=== PATIENT | male | born 1970 | race Caucasian/White ===

== ENCOUNTER 2019-07-17 09:06 | Day surgery (SDC) | payer OTHER, BC ==
[2019-07-13 09:35] VITALS: BMI 27.1
[2019-07-17 09:29] VITALS: TEMP 96.8
[2019-07-17] MEDS ORDERED: LIDOCAINE 1% 20 ML VIAL (10MG/ML) FOR IV START INTRADERMA ONE (09:32)
[2019-07-17] MEDS ORDERED: LACTATED RINGERS 1,000 ML IV ONE (09:32)
[2019-07-17] MEDS ORDERED: PROPOFOL 10 MG/ML 20 ML VIAL IV ONE (10:58)
[2019-07-17] MEDS ORDERED: LIDOCAINE 1% INJ 10MG/ML (20 ML MDV) ONE (10:58)
--- NOTE | 2019-07-17 11:01 | P.GSHP ---
History of Present Illness H&P Date: 07/17/19 Chief Complaint: Screening colonoscopy This a 49-year-old male who presents today for screening colonoscopy. He denies a significant GI complaints. Past Medical History Past Medical History: Hypertension History of Any Multi-Drug Resistant Organisms: None Reported Past Surgical History: Back Surgery, Orthopedic Surgery Additional Past Surgical History / Comment(s): colonoscopy,Cervical fusion C5-T1-3 different surgeries,rt shoulder repair,vasyl carpel tunnel,trigger finger release Past Anesthesia/Blood Transfusion Reactions: Postoperative Nausea & Vomiting (PONV) Additional Past Anesthesia/Blood Transfusion Reaction / Comment(s): no hx blood transfusion Smoking Status: Never smoker - Past Family History Mother Family Medical History: No Reported History Medications and Allergies Home Medications Medication Instructions Recorded Confirmed Type Ascorbic Acid [Vitamin C] 500 mg PO DAILY 07/13/19 07/17/19 History Ergocalciferol [Vitamin D2] 50,000 unit PO OTERO 07/13/19 07/17/19 History Losartan/Hydrochlorothiazide 1 tab PO DAILY 07/13/19 07/17/19 History [Hyzaar 100-25 Tablet] Terazosin HCl [Hytrin] 10 mg PO BID 07/13/19 07/17/19 History Vitamin B Complex 1 each PO DAILY 07/13/19 07/17/19 History Allergies Allergy/AdvReac Type Severity Reaction Status Date / Time procaine [From Novocain] Allergy Itching & Verified 07/17/19 09:24 burning at site,states "lidocaine is ok" shellfish derived [Shellfish] Allergy Anaphylaxis Verified 07/17/19 09:24 Surgical - Exam Vital Signs Temp Pulse BP Pulse Ox 96.8 F L 75 165/91 98 07/17/19 09:25 07/17/19 09:25 07/17/19 09:25 07/17/19 09:25 - General well developed, well nourished, no distress - Eyes PERRL - ENT normal pinna - Neck no masses - Respiratory normal expansion - Cardiovascular Rhythm: regular - Abdomen Abdomen: soft, non tender Assessment and Plan Assessment: We'll perform screening colonoscopy
--- NOTE | 2019-07-17 11:10 | P.OP ---
Date of Procedure: 07/17/19 Preoperative Diagnosis: Screening colonoscopy Postoperative Diagnosis: Normal colonoscopy Procedure(s) Performed: Colonoscopy Anesthesia: MAC Surgeon: Yaw Sutton Pathology: none sent Condition: stable Disposition: PACU Description of Procedure: PROCEDURE: The patient was placed on the endoscopy table in the lateral position. Digital rectal examination was performed which revealed no abnormalities. The prostate was symmetrical without nodules. Flexible colonoscope was then placed in the patient's anus and passed throughout the entire colon. The ileocecal valve was visualized. The cecum, ascending, transverse, descending and sigmoid colon were normal. The rectum was normal as well. There were no masses, polyps or diverticula noted in the entire colon. SUMMARY OF FINDINGS: Normal colonoscopy.
[2019-07-17 11:33] VITALS: RESP 18
[2019-07-17 11:38] VITALS: BP 132/81; PULSE 62
--- NOTE | 2019-07-17 11:53 | P.OP ---
Date of Procedure: 07/17/19 Preoperative Diagnosis: Screening colonoscopy Postoperative Diagnosis: Normal colon Procedure(s) Performed: Colonoscopy Anesthesia: MAC Surgeon: Yaw Sutton Pathology: none sent Condition: stable Disposition: PACU Description of Procedure: PROCEDURE: The patient was placed on the endoscopy table in the lateral position. Digital rectal examination was performed which revealed no abnormalities. The prostate was symmetrical without nodules. Flexible colonoscope was then placed in the patient's anus and passed throughout the entire colon. The ileocecal valve was visualized. The cecum, ascending, transverse, descending and sigmoid colon were normal. The rectum was normal as well. There were no masses, polyps or diverticula noted in the entire colon. SUMMARY OF FINDINGS: Normal colonoscopy.
== END 2019-07-17 12:10 | disposition home or self-care (01) ==
LOC: ORWHC2ENDO 09:06
PROVIDERS: ATTEND Surgery
DX: Z12.11 Encounter for screening for malignant neoplasm of colon (principal); I10 Essential (primary) hypertension; Z98.890 Other specified postprocedural states; Z98.1 Arthrodesis status; Z79.899 Other long term (current) drug therapy; Z91.013 Allergy to seafood; Z88.4 Allergy status to anesthetic agent
CPT/HCPCS: J2001; J2704; G0121

== ENCOUNTER → 2020-10-14 | Outpatient (CLI) | payer OTHER, BC ==
--- NOTE | 2020-10-14 14:20 | EST ---
EXERCISE STRESS AGE: 50 SEX: Male HT: 6' WT: 200 PROTOCOL: Pietro STAGE: V DURATION OF EXERCISE: 12 minutes HEART RATE REST: 72 BLOOD PRESSURE REST: 128/97 MAXIMUM HEART RATE ACHIEVED: 174 MAXIMUM BLOOD PRESSURE: 208/82 85% MPHR: 143 100% MPHR: 168 METS: 12 INDICATIONS: Chest pain. CLINICAL INFORMATION: STRESS DATA: Heart rate 72, pressure is 128/97 mmHg. Baseline EKG showed sinus mechanism. The patient exercised on the treadmill according to Pietro protocol for a total of 12 minutes. Report of 12 minutes and achieved 12 METs. Max heart rate was 174, which is about 100% of maximum predicted heart rate with maximum blood pressure of 208/82 mmHg. Clinically, the patient did not have any symptoms and the EKG did not show any significant ST or T-wave abnormalities. CONCLUSION: 1. Excellent exercise tolerance. 2. Normal EKG in response to exercise. MMODL / IJN: [id number] /
== END | disposition home or self-care (01) ==
LOC: RADNMMAIN 08:29
PROVIDERS: ATTEND Family Medicine
DX: I10 Essential (primary) hypertension (principal); R06.00 Dyspnea, unspecified
CPT/HCPCS: 93017